=== PATIENT | female | born 1955 ===

== ENCOUNTER 2017-11-30 13:03 | Outpatient (CLI) | payer OTHER ==
--- NOTE | 2017-11-30 16:13 | Ultrasound Report ---
THYROID ULTRASOUND:11/30/17 13:03:00 CLINICAL: Goiter. FINDINGS: High-resolution ultrasound demonstrated a mildly enlarged thyroid with a few bilateral tiny benign cysts. A right upper pole nodule with relatively large calcifications measures 7 x 6 x 6 mm. Multicystic lesions in the left lower pole measures 6 x 4 x 4 mm and 7 x 4 x 6 mm. The right lobe measures 4.8 x 1.4 x 2.0cm. The left lobe measures 4.8 x 1.5 x 2.6. The isthmus measures 0.5 cm AP thickness. IMPRESSION: Mild thyroid enlargement with probably benign bilateral lesions as described. Recommend six month followup thyroid ultrasound to reassess the size of lesions.
--- NOTE | 2017-11-30 16:33 | Mammography Report ---
BILATERAL DIGITAL SCREENING MAMMOGRAM with CAD : 11/30/17 13:03:00 CLINICAL: Routine screening. COMPARISON:None available. FINDINGS: The breasts are heterogeneously dense, which may obscure small masses.A 1 cm left lower inner partially circumscribed mass with a biopsy clip. No other mass, architectural distortion or suspicious calcifications. IMPRESSION: No mammographic evidence of malignancy. BI-RADS CATEGORY: 2 -- Benign RECOMMENDATION: Routine mammographic screening in one year. COMMENT: Patient follow-up letters are generated by our [employer] application.
== END 2017-11-30 13:04 | disposition home or self-care (01) ==
LOC: SPVWC 13:03
PROVIDERS: ATTEND Family Medicine
DX: Z12.31 Encounter for screening mammogram for malignant neoplasm of breast (principal); E04.1 Nontoxic single thyroid nodule; E04.9 Nontoxic goiter, unspecified
CPT/HCPCS: 76536; 77067